=== PATIENT | female | born 1990 | race Caucasian/White ===

== ENCOUNTER 2017-11-06 21:05 | Emergency (ER) | payer BC ==
[2017-11-06] MEDS: KETOROLAC 60 MG INJ IM (21:38)
== END 2017-11-07 00:04 | disposition home or self-care (01) ==
LOC: FTE 11-07 00:04
DX: S52.121A Displaced fracture of head of right radius, initial encounter for closed fracture (principal); F17.210 Nicotine dependence, cigarettes, uncomplicated; W01.0XXA Fall on same level from slipping, tripping and stumbling without subsequent striking against object, initial encounter; Y92.89 Other specified places as the place of occurrence of the external cause
CPT/HCPCS: 29105; 73060-RT; 73080-RT; 96372; 99284-25